=== PATIENT | female | born 1940 | race Caucasian/White ===

== ENCOUNTER 2018-04-06 09:03 | Outpatient (CLI) | payer MEDICARE, BC | END 2018-04-06 09:04 | disposition home or self-care (01) | LOC: BICMAMMO 09:03 | PROVIDERS: ATTEND Internal Medicine | DX: Z12.31 Encounter for screening mammogram for malignant neoplasm of breast (principal); N63.20 Unspecified lump in the left breast, unspecified quadrant; R92.1 Mammographic calcification found on diagnostic imaging of breast; Z80.3 Family history of malignant neoplasm of breast | CPT/HCPCS: 77063; 77067 ==

== ENCOUNTER 2018-04-14 08:16 | Outpatient (CLI) | payer MEDICARE, BC ==
--- NOTE | 2018-04-14 10:58 | ULT ---
LEFT BREAST ULTRASOUND LIMITED: HISTORY: A 77-year-old female who presents for left breast ultrasound. Followup evaluation of a mass seen on mammography. FINDINGS: There is a 0.4 x 0.8 x 0.8 cm diameter thin-walled benign cyst at 10 o'clock 3 cm from the nipple. IMPRESSION: Benign left breast cyst at 10 o'clock 3 cm from the nipple. BIRADS category 2, benign findings. Con tinued routine screening. BIRADS 2: Benign Finding(s) Routine annual screening mammography (for women over age 40) POS: OFF
== END 2018-04-14 08:17 | disposition home or self-care (01) ==
LOC: BICULT 08:16
PROVIDERS: ATTEND Internal Medicine
DX: N63.20 Unspecified lump in the left breast, unspecified quadrant (principal); R92.1 Mammographic calcification found on diagnostic imaging of breast; N60.02 Solitary cyst of left breast

== ENCOUNTER 2020-08-10 11:08 | Outpatient (CLI) | payer MEDICARE, BC | END 2020-08-10 11:09 | disposition home or self-care (01) | LOC: BICMAMMO 11:08 | PROVIDERS: ATTEND Internal Medicine | DX: Z12.31 Encounter for screening mammogram for malignant neoplasm of breast (principal); Z80.3 Family history of malignant neoplasm of breast | CPT/HCPCS: 77063; 77067 ==

== ENCOUNTER 2021-02-20 08:47 | Outpatient (CLI) | payer MEDICARE, BC | END 2021-02-20 08:48 | disposition home or self-care (01) | LOC: BICMAMMO 08:47 | PROVIDERS: ATTEND Internal Medicine | DX: N60.02 Solitary cyst of left breast (principal) | CPT/HCPCS: 76642; 77065; G0279 ==

== ENCOUNTER 2025-03-01 15:03 | Outpatient (CLI) | payer MEDICARE | END 2025-03-01 15:04 | disposition home or self-care (01) | LOC: BICRAD 15:03 | PROVIDERS: ATTEND Family Medicine | DX: R05.9 Cough, unspecified (principal); R91.8 Other nonspecific abnormal finding of lung field | CPT/HCPCS: 71046 ==

== ENCOUNTER 2025-03-06 09:47 | Inpatient (IN) | payer MEDICARE ==
[2025-03-06] MEDS ORDERED: Iopamidol-370 76% 500 ML MDV (1 ML CHARGE) ONE (10:08)
[2025-03-06 10:41] LABS: Hematocrit 39.6 % (36.0-47.0); Hemoglobin 12.8 g/dL (12.0-16.0); Mean Corpuscular Hemoglobin 28.8 pg (27.0-31.0); Mean Corpuscular Volume 89.0 fL (78.0-98.0); Platelet Count 238 10x3/uL (130-400); Red Blood Cell (RBC) Count 4.45 mill/uL (4.20-5.40); White Blood Cell (WBC) Count 31.63 10x3/uL (4.8-10.8)
[2025-03-06 10:58] LABS: ALT (SGPT) 20 U/L (Less than 34); AST (SGOT) 29 U/L (11-34); Albumin 2.9 g/dL (3.1-4.5); Alkaline Phosphatase 146 U/L (40-110); Anion Gap 16 mmol/L (10-20); BUN (Urea Nitrogen) 19 mg/dL (9.8-20.1); Bilirubin, Total 0.6 mg/dL (0.3-1.2); Calc. Creatinine Clearance 0 mL/min (70-130); Calcium 9.1 mg/dL (7.8-10.44); Carbon Dioxide 27 mmol/L (23-31); Chloride 103 mmol/L (98-107); Globulin 4.3 g/dL (2.4-3.5); Glucose 140 mg/dL (83-110); Lipase 18 U/L (8-78); Potassium 4.6 mmol/L (3.5-5.1); Sodium 141 mmol/L (136-145)
[2025-03-06] MEDS ORDERED: cefTRIAXone (ROCEPHIN) 1 GM VIAL ONE (11:36)
[2025-03-06 12:24] LABS: Macrocytosis SLIGHT = 6-15 cells HPF (0-5); Platelet Adequacy Comment Platelets Normal; Polychromasia SLIGHT = 2-3 cells HPF (0-2); Smudge Cells 1.0 %; Toxic Granulation SLIGHT
[2025-03-06 15:08] LABS: Glucose, Urine (Dipstick) Negative (Negative); Leukocyte Trace (Negative); Protein, Urine (Dipstick) Negative (Neg-Trace); Specific Gravity, Urine Less/Equal 1.005 (1.005-1.030)
[2025-03-06] MEDS ORDERED: Ketorolac Tromethamine 30 MG (1 mL) VIAL ONE (15:11)
[2025-03-06 15:13] LABS: Bacteria/HPF None Seen HPF (None Seen); CAUTI Indications for Culture Pelvic or flank pain; RBC/HPF 0-3 HPF (0-3); WBC/HPF 0-3 HPF (0-3)
[2025-03-06 15:19] LABS: Urine Culture Reflex No No
[2025-03-06] MEDS ORDERED: Ondansetron PF 4 MG/2 ML Vial ONE (15:23)
[2025-03-06] MEDS: Ketorolac Tromethamine 30 MG (1 mL) VIAL IVP PRN (15:40)
[2025-03-06] MEDS: Ondansetron PF 4 MG/2 ML Vial IVP PRN (15:41)
[2025-03-06 15:46] VITALS: BMI 16.2
[2025-03-06] MEDS: Famotidine 20 MG TAB PO SCH (20:28)
[2025-03-06] MEDS: Melatonin 3 MG TAB PO PRN (20:32)
[2025-03-06] MEDS: Benzonatate 100 MG CAP PO PRN (21:46)
[2025-03-07 06:01] LABS: Hematocrit 33.6 % (36.0-47.0); Hemoglobin 10.7 g/dL (12.0-16.0); Mean Corpuscular Hemoglobin 29.2 pg (27.0-31.0); Mean Corpuscular Volume 91.6 fL (78.0-98.0); Platelet Count 203 10x3/uL (130-400); Red Blood Cell (RBC) Count 3.67 mill/uL (4.20-5.40); White Blood Cell (WBC) Count 32.45 10x3/uL (4.8-10.8)
[2025-03-07 06:07] LABS: ALT (SGPT) 15 U/L (Less than 34); AST (SGOT) 19 U/L (11-34); Albumin 2.6 g/dL (3.1-4.5); Alkaline Phosphatase 119 U/L (40-110); Anion Gap 17 mmol/L (10-20); BUN (Urea Nitrogen) 15 mg/dL (9.8-20.1); Bilirubin, Total 0.4 mg/dL (0.3-1.2); Calc. Creatinine Clearance 38 mL/min (70-130); Calcium 8.5 mg/dL (7.8-10.44); Carbon Dioxide 23 mmol/L (23-31); Chloride 107 mmol/L (98-107); Globulin 3.4 g/dL (2.4-3.5); Glucose 139 mg/dL (83-110); Potassium 4.5 mmol/L (3.5-5.1); Sodium 142 mmol/L (136-145)
[2025-03-07 06:33] LABS: Platelet Adequacy Comment Platelets Normal; RBC Morphology Within Normal Limits; Smudge Cells 11.0 %
[2025-03-07 11:50] LABS: INR-International Normal Ratio 1.4; PTT 31.0 sec (22.9-36.1); Prothrombin Time 17.2 sec (12.0-14.7)
[2025-03-07 14:00] LABS: RBC Count-Automated (BF) 916 /cu.mm; WBC/Nucleated-Auto (BF) 171 /cu.mm
[2025-03-07 14:04] LABS: Fluid, Triglycerides 20 mg/dL (Not Available); Pleural Fluid, Amylase Less than 30 U/L (Not Available); Pleural Fluid, Glucose 118 mg/dL; Pleural Fluid, LDH 183 U/L (Not Available); Pleural Fluid, Protein 3.4 g/dL
[2025-03-07 14:31] LABS: Fluid, pH - Pleural Fld Greater than 7.500 (7.60 - 7.66)
[2025-03-07 14:32] LABS: BF Segmented Neutrophils 26 %; Cell Count Non Hematic 40 %
[2025-03-07] MEDS: Mirtazapine 15 MG TAB PO SCH (20:27)
[2025-03-08] MEDS ORDERED: Sodium Bicarbonate 2.5 MEQ/5 ML SDV ONE (13:09)
[2025-03-08] MEDS ORDERED: Lidocaine 1% PF 5 ML VIAL ONE (13:09)
[2025-03-08] MEDS: cefTRIAXone\\ROCEPHIN 1 GM in Sodium Chloride 0.9% 100 ML IVPB SCH (16:59)
[2025-03-09 07:00] LABS: #Basophils 0.09 10x3/uL (0.0-0.2); #Eosinophils 1.70 10x3/uL (0.0-0.7); #Monocytes 1.86 10x3/uL (0.11-0.59); #Neutrophils 18.73 10x3/uL (1.40-6.50); %Basophils 0.4 % (0.0-1.0); %Eosinophils 7.0 % (0.0-10.0); %Lymphocytes 6.8 % (21.0-51.0); %Monocytes 7.7 % (0.0-10.0); %Neutrophils 77.1 % (42.0-75.0); Hematocrit 35.1 % (36.0-47.0); Hemoglobin 10.8 g/dL (12.0-16.0); Mean Corpuscular Hemoglobin 28.6 pg (27.0-31.0); Mean Corpuscular Volume 93.1 fL (78.0-98.0); Platelet Count 176 10x3/uL (130-400); Red Blood Cell (RBC) Count 3.77 mill/uL (4.20-5.40); White Blood Cell (WBC) Count 24.26 10x3/uL (4.8-10.8)
[2025-03-09 07:13] LABS: Anion Gap 14 mmol/L (10-20); BUN (Urea Nitrogen) 20 mg/dL (9.8-20.1); Calc. Creatinine Clearance 40 mL/min (70-130); Calcium 8.6 mg/dL (7.8-10.44); Carbon Dioxide 24 mmol/L (23-31); Chloride 106 mmol/L (98-107); Glucose 94 mg/dL (83-110); Potassium 4.0 mmol/L (3.5-5.1); Sodium 140 mmol/L (136-145)
[2025-03-09] MEDS: PNEUMOC 20-VAL CONJ-DIP CRM/PF 0.5 ML SYRINGE IM ONE (11:00)
[2025-03-11] MEDS: Aspirin 81 mg Enteric Coated Tablet PO SCH (16:49)
[2025-03-12 04:30] LABS: Hematocrit 41.1 % (36.0-47.0); Hemoglobin 12.5 g/dL (12.0-16.0); Mean Corpuscular Hemoglobin 28.4 pg (27.0-31.0); Mean Corpuscular Volume 93.4 fL (78.0-98.0); Platelet Count 190 10x3/uL (130-400); Red Blood Cell (RBC) Count 4.40 mill/uL (4.20-5.40); White Blood Cell (WBC) Count 29.01 10x3/uL (4.8-10.8)
[2025-03-12 05:06] LABS: Anion Gap 20 mmol/L (10-20); BUN (Urea Nitrogen) 26 mg/dL (9.8-20.1); Calc. Creatinine Clearance 40 mL/min (70-130); Calcium 8.6 mg/dL (7.8-10.44); Carbon Dioxide 18 mmol/L (23-31); Cardiac Risk 3.8 (Less than 4.5); Chloride 106 mmol/L (98-107); Cholesterol 143 mg/dl (< 200 Desired); Glucose 111 mg/dL (83-110); HDL Cholesterol 38 mg/dL (>60 Neg Risk); LDL Cholesterol, Calculated 81 mg/dL; Potassium 5.0 mmol/L (3.5-5.1); Sodium 139 mmol/L (136-145); Triglycerides 119 mg/dL (Less than 150)
[2025-03-12 05:27] LABS: Anisocytosis SLIGHT = 6-15 cells HPF (0-5); Macrocytosis SLIGHT = 6-15 cells HPF (0-5); Platelet Adequacy Comment Platelets Normal; Polychromasia SLIGHT = 2-3 cells HPF (0-2); Smudge Cells 5.0 %
[2025-03-12] MEDS: Aspirin 81 mg Enteric Coated Tablet PO SCH (08:18)
[2025-03-15] MEDS: Guaifenesin DM 100-10/5 ML UDCUP PO SCH (12:31)
[2025-03-15 14:16] VITALS: BMI 15.8
[2025-03-16] MEDS: Acetaminophen 325 MG TAB PO PRN (09:51)
[2025-03-17 08:02] VITALS: BP 158/70; TEMP 98.7
== END 2025-03-17 12:05 | disposition home health service (06) | DRG 180 ==
LOC: ERS 09:47 → ERHOLD 13:30 → T4-A 16:27 → OBSVTOIN 03-07 15:38 → 2SE 03-11 18:56
PROVIDERS: ADMIT Family Medicine; ATTEND Family Medicine
PROC: 0W993ZZ Drainage of Right Pleural Cavity, Percutaneous Approach (ICD-10-PCS; principal; 2025-03-07)
PROC: 0BBC3ZX Excision of Right Upper Lung Lobe, Percutaneous Approach, Diagnostic (ICD-10-PCS; 2025-03-08)
DX: C34.11 Malignant neoplasm of upper lobe, right bronchus or lung (principal); E43 Unspecified severe protein-calorie malnutrition; J96.01 Acute respiratory failure with hypoxia; I63.9 Cerebral infarction, unspecified; J90 Pleural effusion, not elsewhere classified; Z68.1 Body mass index [BMI] 19.9 or less, adult; Z51.5 Encounter for palliative care; F32.A Depression, unspecified; Z60.2 Problems related to living alone; E78.5 Hyperlipidemia, unspecified; J44.9 Chronic obstructive pulmonary disease, unspecified; Z98.891 History of uterine scar from previous surgery
CPT/HCPCS: 0439T; 32408; 36415; 36416; 70553; 71045; 71275; 74177; 76376; 77002; 77012; 80048; 80053; 80061; 81001; 82150; 82945; 83605; 83615; 83690; 83986; 84157; 84478; 84484; 85025; 85060; 85610; 85730; 87116; 87206; 88112; 88305; 88333; 88334; 88341; 88342; 89051; 93005; 96365; 96375; 96376; G0378; J0696; J1885; J2060; J2270; J2405; J3010; Q9957; Q9967